=== PATIENT | male | born 1995 | race Caucasian/White ===

== ENCOUNTER 2017-10-01 00:34 | Emergency (ER) | payer OTHER ==
[2017-10-01 00:43] VITALS: BP 128/75; PULSE 91; RESP 18; TEMP 97.9
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
== END 2017-10-01 01:42 | disposition home or self-care (01) ==
LOC: EC 00:34
DX: S00.83XA Contusion of other part of head, initial encounter (principal); F17.200 Nicotine dependence, unspecified, uncomplicated; Y04.0XXA Assault by unarmed brawl or fight, initial encounter
CPT/HCPCS: 70110; 99284

== ENCOUNTER 2017-11-15 06:37 | Emergency (ER) | payer OTHER ==
[2017-11-15] MEDS ORDERED: SODIUM CHLORIDE 0.9% 500 ML IV STA (07:29)
[2017-11-15] MEDS ORDERED: ONDANSETRON 4 MG/2 ML VIAL IVP STA (07:29)
[2017-11-15] MEDS ORDERED: SODIUM CHLORIDE 0.9% 1,000 ML IV STA (07:29)
[2017-11-15] MEDS ORDERED: KETOROLAC 30 MG/ML 1 ML VIAL IVP STA (07:33)
[2017-11-15 08:21] LABS: Basophils # (A) 0.1 k/uL (0-0.2); Basophils % (A) 1 %; Eosinophils # (A) 0.2 k/uL (0-0.7); Eosinophils % (A) 4 %; HCT 45.4 % (39.0-53.0); HGB 15.5 gm/dL (13.0-17.5); Lymphocytes # (A) 1.1 k/uL (1.0-4.8); Lymphocytes % (A) 18 %; MCHC 34.1 g/dL (31.0-37.0); Mean Platelet Volume 6.3; Monocytes # (A) 0.6 k/uL (0-1.0); Monocytes % (A) 9 %; Neutrophils # (A) 4.2 k/uL (1.3-7.7); Neutrophils % (A) 67 %; Platelet Count 273 k/uL (150-450); RBC 5.34 m/uL (4.30-5.90); RDW 12.6 % (11.5-15.5); WBC 6.4 k/uL (3.8-10.6)
[2017-11-15 08:32] LABS: ALT 20 U/L (21-72); AST 18 U/L (17-59); Alkaline Phosphatase 50 U/L (38-126); Amylase 48 U/L (30-110); Anion Gap 11 mmol/L; Blood Urea Nitrogen 6 mg/dL (9-20); Calcium 9.2 mg/dL (8.4-10.2); Carbon Dioxide 27 mmol/L (22-30); Chloride 102 mmol/L (98-107); Glucose 106 mg/dL (74-99); Lipase 79 U/L (23-300); Potassium 4.7 mmol/L (3.5-5.1); Sodium 140 mmol/L (137-145); Total Bilirubin 0.3 mg/dL (0.2-1.3); Total Protein 6.3 g/dL (6.3-8.2)
[2017-11-15 08:36] LABS: Appearance,Urine Clear (Clear); Bilirubin,Urine Negative (Negative); Blood,Urine Negative (Negative); Color,Urine Light Yellow; Glucose,Urine (UA) Negative (Negative); Ketones,Urine Negative (Negative); Leukocyte Esterase,Urine Negative (Negative); Nitrite,Urine Negative (Negative); PH, Urine 6.5 (5.0-8.0); Protein,Urine Negative (Negative); Specific Gravity,Urine 1.004 (1.001-1.035); Urobilinogen,Urine <2.0 mg/dL (<2.0)
--- NOTE | 2017-11-15 08:38 | XR ---
EXAMINATION TYPE: XR abdomen acute w cxr DATE OF EXAM: 11/15/2017 COMPARISON: NONE HISTORY: Pain TECHNIQUE: Single view of the chest and 2 views of the abdomen are submitted. FINDINGS: Single view of the chest fails demonstrate evidence for acute pulmonary disease. There is no evidence for pneumoperitoneum. The bowel gas pattern is unremarkable as there is air throughout nondilated small and large bowel. No sizeable air fluid levels.No mass effects are seen. No unusual calcifications. IMPRESSION: 1. Unremarkable study.
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
--- NOTE | 2017-11-15 10:59 | US ---
EXAMINATION TYPE: US abdomen APPY DATE OF EXAM: 11/15/2017 COMPARISON: NONE CLINICAL HISTORY: RLQ pain. APPENDIX AP Diameter (normal < 6mm): 6 mm Measured outer wall to outer wall. Is the appendix seen in its entirety from the proximal cecum to distal end: distal end may be partial ly obscured Is the appendix compressible: yes Does the appendix wall appear hypervascular: no Is an appendicolith present: no Is there inflammatory changes or free fluid present: no IMPRESSION: Appendiceal tip is obscured however the remainder of the appendix has a normal appearanc e without surrounding inflammatory change or evidence for hyperemia/abscess.
--- NOTE | 2017-11-15 11:04 | US ---
EXAMINATION TYPE: US kidneys/renal and bladder DATE OF EXAM: 11/15/2017 COMPARISON: NONE CLINICAL HISTORY: Pain. EXAM MEASUREMENTS: Right Kidney: 11.1 x 4.0 x 4.1 cm Left Kidney: 11.2 x 5.1 x 4.9 cm Right Kidney: wnl Left Kidney: Superior pole slightly obscured by bowel gas Bladder: not fully distended There is no evidence for hydronephrosis at this point in time. No nephrolithiasis is seen. No wandy s are identified. The urinary bladder is anechoic. Bilateral ureteral jets are seen. IMPRESSION: No distinct abnormality appreciated at this time.
[2017-11-15 11:26] VITALS: BP 115/69; PULSE 60; RESP 18; TEMP 98.6
== END 2017-11-15 11:26 | disposition home or self-care (01) ==
LOC: EC 06:37
DX: R10.31 Right lower quadrant pain (principal); R11.2 Nausea with vomiting, unspecified; F17.200 Nicotine dependence, unspecified, uncomplicated
CPT/HCPCS: 36415; 80053; 82150; 83690; 85025; 81003; 74022; 76705; 76770; 99284; 96374; 96375; 96361 ×3; J2405; J1885